=== PATIENT | female | born 1950 | race African-American/Black ===

== ENCOUNTER → 2017-04-21 | Outpatient (CLI) | payer OTHER ==
[2013-12-05 10:30] VITALS: BP 121/75
[~2017-04-21] MED LIST: AMLO5TAB2 PO; ASPI81TA44 PO; CHOL20002 PO; LISI40TA PO; METO100T5 PO; OMEG1CAP6 PO; PRAV20TA2 PO
--- NOTE | 2017-04-21 15:08 | RAD ---
DATE: 04/21/2017 EXAM: DIGITAL SCREEN BILAT W/CAD HISTORY: Screening COMPARISON: 12/11/2015 This study was interpreted with the benefit of Computerized Aided Detection (CAD). FINDINGS: Breast Density: SCATTERED The breast parenchyma shows scattered fibroglandular densities. Breast parenchyma level B. There are scattered benign-appearing calcifications in both breasts. There has not been a significant change in the appearance of the breasts compared to the previous exam IMPRESSION: Benign finding BI-RADS CATEGORY: 2 BENIGN FINDING(S) RECOMMENDED FOLLOW-UP: 12M 12 MONTH FOLLOW-UP PQRS compliance statement: Patient information was entered into a reminder system with a target due date 04/21/2018 for the next mammogram. Mammography is a sensitive method for finding small breast cancers, but it does not detect them all and is not a substitute for careful clinical examination. A negative mammogram does not negate a clinically suspicious finding and should not result in delay in biopsying a clinically suspicious abnormality. "Our facility is accredited by the [employer] Mammography [employer]."
== END | disposition home or self-care (01) ==
LOC: MAMMO 09:50
PROVIDERS: ATTEND Internal Medicine
DX: Z12.31 Encounter for screening mammogram for malignant neoplasm of breast (principal)
CPT/HCPCS: G0202; 77067

== ENCOUNTER → 2018-04-25 | Outpatient (CLI) | payer OTHER ==
[2013-12-05 10:30] VITALS: BP 121/75
[~2018-04-25] MED LIST changes: -AMLO5TAB2 PO; +AMLO5TAB7 PO; -ASPI81TA44 PO; +ASPI81TA59 PO; -CHOL20002 PO; +LISI-130 PO; -LISI40TA PO; +[UNRECOGNIZED DRUG - CODE] PO
--- NOTE | 2018-04-25 14:00 | RAD ---
DATE: April 25, 2018 EXAM: MAMMO JENNIFER SCREENING BILATERAL HISTORY: Screening study. COMPARISON: 2015 and 2017 This study was interpreted with the benefit of Computerized Aided Detection (CAD). 2-D digital mammographic views of both breasts were performed in the CC and MLO projections. 3-D digital tomosynthesis images of both breasts were performed in the CC and MLO projections and reviewed on a computer workstation. FINDINGS: Breast Density: HETERO The breast parenchyma is heterogenously dense, which could reduce sensitivity of mammography. Breast parenchyma level C.. There are no dominant suspicious masses, suspicious microcalcifications or evidence of architectural distortion. IMPRESSION: No mammographic indicators for malignancy. BI-RADS CATEGORY: 1 NEGATIVE RECOMMENDED FOLLOW-UP: 12M 12 MONTH FOLLOW-UP PQRS compliance statement: Patient information was entered into a reminder system with a target due date April 26, 2019 for the next mammogram. Mammography is a sensitive method for finding small breast cancers, but it does not detect them all and is not a substitute for careful clinical examination. A negative mammogram does not negate a clinically suspicious finding and should not result in delay in biopsying a clinically suspicious abnormality. "Our facility is accredited by the [employer] Mammography [employer]." The patient's breast density may affect the ability of mammography to detect breast cancer. There are 4 categories of breast density, A, B, C and D. Breast density A means that most of the breast tissue is replaced with adipose tissue and therefore is not dense. Breast density B means that the breast tissue is mildly dense and scattered. Breast density C means that the breast tissue is heterogeneously dense. Breast density D means that the breast tissue is very dense. Breast densities especially C and D may decrease the sensitivity of mammography to detect breast cancer. Therefore, the patient may benefit from 3-D breast mammography (3D breast tomography) as a part of their screening mammogram. Insurance may or may not pay for this additional imaging. The patient's breast density based on today's mammogram is category C.
== END | disposition home or self-care (01) ==
LOC: MAMMO 10:11
PROVIDERS: ATTEND Internal Medicine
DX: Z12.31 Encounter for screening mammogram for malignant neoplasm of breast (principal)
CPT/HCPCS: 77063; 77067

== ENCOUNTER 2018-10-24 10:43 | Emergency (ER) | payer OTHER ==
[~2018-10-24] VITALS: Ht 157.5 cm; Wt 64.2 kg
[~2018-10-24 10:43] MED LIST changes: +AMLO5TAB10 PO; -AMLO5TAB7 PO; +CHOL20002 PO; -[UNRECOGNIZED DRUG - CODE] PO
--- NOTE | 2018-10-24 11:12 | PHYS DOC ---
Past Medical History Past Medical History: Diabetes-Type II, High Cholesterol, Hypertension Past Surgical History: Hysterectomy, Other Additional Past Surgical Histo: left breast biospy Alcohol Use: None Drug Use: None Adult General Chief Complaint Chief Complaint: KNEE INJURY HPI HPI Patient is a 68 year old female with a history of diabetes type 2, hypertension , high cholesterol who presents to the ED today complaining of 10 out of 10 right knee pain that began a week ago, patient describes the pain as sharp and intermittent worse on weight bearing. She states the pain began when she was participating in a [employer] class, she states she jumped up and landed wrong on the right knee. Review of Systems Review of Systems Constitutional: Denies fever or chills [] Musculoskeletal: Reports right knee pain Integument: Denies rash or skin lesions [] Neurologic: Denies headache, focal weakness or sensory changes [] All other systems were reviewed and found to be within normal limits, except as documented in this note. Allergies Allergies Allergies Coded Allergies Type Severity Reaction Last Updated Verified No Known Drug Allergies 12/05/13 No Physical Exam Physical Exam Constitutional: Well developed, well nourished, no acute distress, non-toxic appearance. [] Skin: Warm, dry, no erythema, no rash. [] Back: No tenderness, no CVA tenderness. [] Extremities: Right knee with no obvious deformity, trace edema to the knee. Slight tenderness on palpation of the right medial knee. Full range of motion to the right knee, negative Chris sign, negative Alem's sign, negative anterior-posterior drawer sign, no laxity. +2 right pedal pulse. Cap refill less than 2 seconds the right toes. Neurologic: Alert and oriented X 3, normal motor function, normal sensory function, no focal deficits noted. [] Psychologic: Affect normal, judgement normal, mood normal. [] Current Patient Data Vital Signs Vital Signs Date Time Temp Pulse Resp B/P (MAP) Pulse Ox O2 Delivery O2 Flow Rate FiO2 10/24/18 11:43 75 16 130/73 (92) 98 Room Air 10/24/18 10:51 98.7 98.7 EKG EKG [] Radiology/Procedures Radiology/Procedures []PROCEDURE: KNEE RIGHT 4V EXAM: Right knee, 4 views. HISTORY: Fall. Pain. COMPARISON: None. FINDINGS: 4 views of the right knee are obtained. There is no fracture, dislocation or subluxation. There is a trace joint effusion. IMPRESSION: 1. No acute osseous finding. 2. Trace right knee effusion. Electronically signed by: Elizabeth Eli MD (10/24/2018 11:30 AM) [facility] DICTATED and SIGNED BY: ELIZABETH ELI MD DATE: 10/24/18 1130 Course & Med Decision Making Course & Med Decision Making Pertinent Labs and Imaging studies reviewed. (See chart for details) This is a 68-year-old female patient presenting to the ED today with right knee pain after an injury a week ago. Right knee x-rays interpreted by radiologist were negative for any acute findings, noted for trace joint effusion Girma bandage applied to the right knee by the ED RN, neurovascular exam is intact. Ice/elevation encouraged. OTC pain relievers. Follow-up with orthopedic doctor in one week. Dragon Disclaimer Dragon Disclaimer This electronic medical record was generated, in whole or in part, using a voice recognition dictation system. Departure Departure Impression: Primary Impression: Right knee sprain Additional Impression: Effusion of knee joint right Disposition: 01 HOME, SELF-CARE Condition: STABLE Referrals: FELICE MARTINEZ MD (PCP) VALERIE DAVIS II, MD Follow-up in one week Patient Instructions: Knee Effusion, Knee Sprain, [id number] Additional Instructions: You were evaluated in the emergency room for right knee pain, right knee x-rays were negative for any acute findings, you were noted for trace joint effusion/ fluid in the knee,the body typically will absorbs this extra fluid all day. Try and wrap with the Girma bandage provided. Try to ice it and elevate the knee. Follow-up with your own primary care doctor or the orthopedic doctor provided in 1-2 weeks. You can take [id number] pain relievers as needed for pain. Problem Qualifiers Primary Impression: Right knee sprain Encounter type: initial encounter Involved ligament of knee: unspecified ligament Qualified Codes: S83.91XA - Sprain of unspecified site of right knee , initial encounter LOGAN GAO APRN Oct 24, 2018 11:12
--- NOTE | 2018-10-24 11:33 | RAD ---
EXAM: Right knee, 4 views. HISTORY: Fall. Pain. COMPARISON: None. FINDINGS: 4 views of the right knee are obtained. There is no fracture, dislocation or subluxation. There is a trace joint effusion. IMPRESSION: 1. No acute osseous finding. 2. Trace right knee effusion. Electronically signed by: Elizabeth Casillas MD (10/24/2018 11:30 AM) [facility]
[2018-10-24 11:43] VITALS: BP 130/73
== END 2018-10-24 11:57 | disposition home or self-care (01) ==
LOC: ER 10:43
DX: S83.91XA Sprain of unspecified site of right knee, initial encounter (principal); E11.9 Type 2 diabetes mellitus without complications; E78.00 Pure hypercholesterolemia, unspecified; I10 Essential (primary) hypertension; W18.39XA Other fall on same level, initial encounter; Y93.39 Activity, other involving climbing, rappelling and jumping off; Y92.89 Other specified places as the place of occurrence of the external cause; Y99.8 Other external cause status
CPT/HCPCS: 73564; 99284

== ENCOUNTER → 2019-04-26 | Outpatient (CLI) | payer OTHER ==
--- NOTE | 2019-04-26 10:04 | RAD ---
DATE: 04/26/2019 EXAM: MAMMO JENNIFER SCREENING BILATERAL HISTORY: Routine screening COMPARISON: 12/11/2015, 04/21/2017, 04/25/2018 mammographic exams This study was interpreted with the benefit of Computerized Aided Detection (CAD). Breast Density: HETERO The breast parenchyma is heterogenously dense, which could reduce sensitivity of mammography. Breast parenchyma level C. FINDINGS: No new mass or distortion. Benign-appearing calcifications at the right upper central breast posteriorly are somewhat increased in the interval. No linear branching pattern or other suspicious pattern identified. No associated mass or distortion. IMPRESSION: Benign findings BI-RADS CATEGORY: 2 BENIGN FINDING(S) RECOMMENDED FOLLOW-UP: 12M 12 MONTH FOLLOW-UP PQRS compliance statement: Patient information was entered into a reminder system with a target due date for the next mammogram. Mammography is a sensitive method for finding small breast cancers, but it does not detect them all and is not a substitute for careful clinical examination. A negative mammogram does not negate a clinically suspicious finding and should not result in delay in biopsying a clinically suspicious abnormality. "Our facility is accredited by the [employer] Mammography [employer]."
== END | disposition home or self-care (01) ==
LOC: MAMMO 09:04
PROVIDERS: ATTEND Internal Medicine
DX: Z12.31 Encounter for screening mammogram for malignant neoplasm of breast (principal)
CPT/HCPCS: 77063; 77067

== ENCOUNTER 2020-02-11 15:37 | Emergency (ER) | payer MEDICARE ==
[~2020-02-11] VITALS: Ht 157.5 cm; Wt 65.4 kg
[~2020-02-11 15:37] MED LIST changes: +CRESTOR5 MG PO; +DOCU100C28 PO; +MELA3TAB43 PO; +METF500T16 PO
[2020-02-11 16:25] VITALS: BP 125/78
--- NOTE | 2020-02-11 16:38 | PHYS DOC ---
Past Medical History Past Medical History: Diabetes-Type II, High Cholesterol, Hypertension Past Surgical History: Hysterectomy, Other Additional Past Surgical Histo: left breast biospy Smoking Status: Never Smoker Alcohol Use: None Drug Use: None General Adult EDM: Chief Complaint: NOSEBLEED HPI: HPI: Patient is a 69 year old female who presents to the emergency department via EMS with complaints of a nosebleed. Patient states that she was picking at something in her left nare when her nose began to bleed and would not stop. Patient denies use of any blood thinners. She also states that both of her knees have ached recently, she reports a history of arthritis. She denies any redness, swelling, or injury. Patient states her blood pressure was high when the ambulance arrived but it is currently 120/78. Patient denies any headache, chest pain, shortness of breath, dizziness, numbness, tingling, weakness, or sh ortness of breath, she currently denies any pain. Patient states she has been taking Tylenol for her knee pain and that has helped. Review of Systems: Review of Systems: Constitutional: Denies fever or chills. [] HENT: Denies nasal congestion or sore throat.; See HPI [] Respiratory: Denies cough or shortness of breath. [] Cardiovascular: Denies chest pain or edema. [] GI: Denies abdominal pain, nausea, vomiting, bloody stools or diarrhea. [] Musculoskeletal: See HPI Integument: Denies rash. [] Neurologic: Denies headache, focal weakness or sensory changes. [] Lymphatic: Denies swollen glands. [] Psychiatric: Denies depression or anxiety. [] Heart Score: Risk Factors: Risk Factors: DM, Current or recent (<one month) smoker, HTN, HLP, family history of CAD, obesity. Risk Scores: Score 0 - 3: 2.5% MACE over next 6 weeks - Discharge Home Score 4 - 6: 20.3% MACE over next 6 weeks - Admit for Clinical Observation Score 7 - 10: 72.7% MACE over next 6 weeks - Early Invasive Strategies Allergies: Allergies: Allergies Coded Allergies Type Severity Reaction Last Updated Verified No Known Drug Allergies 12/05/13 No Physical Exam: PE: Constitutional: Well developed, well nourished, no acute distress, non-toxic appearance. [] HENT: Normocephalic, atraumatic, bilateral external ears normal; bilateral nares patent without bleeding, there is a small scabbed area at the posterior surface of opening of the left nare, bilateral nasal turbinates are erythematous Eyes: PERRLA, EOMI, conjunctiva normal, no discharge. [] Neck: Normal range of motion, no stridor. [] Cardiovascular:Heart rate regular rhythm Lungs & Thorax: Respirations even and unlabored, no retractions, no respiratory distress Skin: Warm, dry, no erythema, no rash. [] Extremities: Bilateral knees: No cyanosis, ROM intact, no edema. [] Neurologic: Alert and oriented X 3, no focal deficits noted. [] Psychologic: Affect normal, judgement normal, mood normal. [] EKG: EKG: [] Radiology/Procedures: Radiology/Procedures: [] Course & Med Decision Making: Course & Med Decision Making Pertinent Labs and Imaging studies reviewed. (See chart for details) [] Dragon Disclaimer: Dragon Disclaimer: This electronic medical record was generated, in whole or in part, using a voice recognition dictation system. Departure Departure Impression: Primary Impression: Left-sided nosebleed Additional Impression: Bilateral chronic knee pain Disposition: 01 HOME, SELF-CARE Condition: STABLE Referrals: FELICE MARTINEZ MD (PCP) Patient Instructions: Nosebleed, [id number] Additional Instructions: You can take 1000 mg of Tylenol up to 4 times a day as needed for knee pain. Follow-up with your primary care doctor if symptoms persist, return to the ER if symptoms worsen. Justicifation of Admission Dx: Justifications for Admission: Justification of Admission Dx: N/A DOROTA HYLTON TRANSPORTATION DIRECTOR Feb 11, 2020 16:38
== END 2020-02-11 17:02 | disposition home or self-care (01) ==
LOC: ER 15:37
DX: R04.0 Epistaxis (principal); G89.29 Other chronic pain; M25.561 Pain in right knee; M25.562 Pain in left knee; E11.9 Type 2 diabetes mellitus without complications; E78.00 Pure hypercholesterolemia, unspecified; I10 Essential (primary) hypertension; Z90.710 Acquired absence of both cervix and uterus; Z98.890 Other specified postprocedural states
CPT/HCPCS: 99283

== ENCOUNTER → 2020-05-01 | Outpatient (CLI) | payer MEDICARE ==
[~2020-05-01] MED LIST changes: +AMLO-186 PO; -AMLO5TAB10 PO
--- NOTE | 2020-05-01 17:40 | RAD ---
DATE: 05/01/2020 EXAM: MAMMO JENNIFER SCREENING BILATERAL HISTORY: Screening COMPARISON: 04/26/2019, 04/25/2018, 04/21/2017 This study was interpreted with the benefit of Computerized Aided Detection (CAD). Breast Density: HETERO The breast parenchyma is heterogenously dense, which could reduce sensitivity of mammography. Breast parenchyma level C. FINDINGS: No mass, suspicious calcification, or architectural distortion in either breast. Benign calcifications are unchanged. IMPRESSION: No evidence of malignancy. BI-RADS CATEGORY: 2 BENIGN FINDING(S) RECOMMENDED FOLLOW-UP: 12M 12 MONTH FOLLOW-UP PQRS compliance statement: Patient information was entered into a reminder system with a target due date for the next mammogram. Mammography is a sensitive method for finding small breast cancers, but it does not detect them all and is not a substitute for careful clinical examination. A negative mammogram does not negate a clinically suspicious finding and should not result in delay in biopsying a clinically suspicious abnormality. "Our facility is accredited by the [employer] Mammography Program."
== END ==
LOC: MAMMO 08:58
PROVIDERS: ATTEND Internal Medicine
DX: Z12.31 Encounter for screening mammogram for malignant neoplasm of breast (principal)
CPT/HCPCS: 77063; 77067

== ENCOUNTER → 2021-05-04 | Outpatient (CLI) | payer MEDICARE ==
--- NOTE | 2021-05-04 17:10 | RAD ---
Bilateral digital screening mammogram to include digital breast tomosynthesis (3-D mammography) 05/04 CLINICAL HISTORY: Screening study. Digital MLO and CC mammograms of both breasts were obtained. Additionally digital breast tomosynthesi s images (3-D mammography) of both breasts in the CC and MLO projections were obtained. Comparison studies are dated 05/01/2020, 04/26/2019 and 04/25/2018. The breast parenchyma is heterogeneously dense which can obscure a lesion on mammography (breast dens ity C). Benign-appearing calcifications are seen within both breasts. No spiculated mass is seen. No malignant appearing calcification or area of architectural distortion is noted. Digital breast tomosynthesis images demonstrate no spiculated mass. No malignant appearing calcificat ion is seen. Impression: BI-RADS Category 1: Negative. There is no mammographic evidence of malignancy. Routine y early screening mammography is recommended for follow-up. This examination was reviewed with the aid of computer-aided detection. A mammogram does not have 100% sensitivity and therefore a negative imaging study should not delay fu rther work up of a suspicious abnormality. Patient information is entered into the reminder system with a target due date for the next screening mammogram of 05/04/2022 "Our facility is accredited by the [employer] Mammography [employer]." Electronically signed by: Donald Caba MD (05/04/2021 5:08 PM) [email or web address]
== END ==
LOC: MAMMO 09:07
PROVIDERS: ATTEND Internal Medicine
DX: Z12.31 Encounter for screening mammogram for malignant neoplasm of breast (principal)
CPT/HCPCS: 77063; 77067